=== PATIENT | male | born 1945 | race Caucasian/White ===

== ENCOUNTER 2017-05-21 09:12 | Day surgery (SDC) ==
[2017-05-21 10:12] VITALS: TEMP 98.6
[2017-05-21] MEDS ORDERED: LIDOCAINE 1% 20 ML MDV ID STA (10:12)
[2017-05-21] MEDS ORDERED: VERSED ONE (11:00)
[2017-05-21] MEDS ORDERED: DIPRIVAN 20 ML VIAL IVP ONE (11:00)
--- NOTE | 2017-05-22 11:04 | OP ---
PROCEDURE: COLONOSCOPY TO THE CECUM. ENDOSCOPIST: Benja CLEVELAND M.D. INDICATION: HISTORY OF POLYPS. LAST EXAM 2011. INSTRUMENT: PCFH-190. MEDICATION: PER ANESTHESIA. PROCEDURE: The patient was positioned for colonoscopy. The digital rectal exam was negative. The colonoscope was inserted through the anus and scope is withdrawn through an adequately prepped colon. [place] Bowel Prep Score 2+2+3 = 7. A small polyp in the ascending colon removed using cold snare polypectomy. No other abnormalities were noted. The retroflex exam was otherwise negative. Scattered diverticula in the left colon. He tolerated the procedure without immediate complication. Withdrawal time 10 minutes and 15 seconds. PLAN: 1. Repeat colonoscopy in 5 years. CC: DR. CONCETTA MOSES
[2017-05-22 14:36] VITALS: BP 110/67
== END 2017-05-21 12:10 | disposition home or self-care (01) ==
LOC: SURG 09:12
PROVIDERS: ATTEND Internal Medicine Gastroenterology
DX: Z09 Encounter for follow-up examination after completed treatment for conditions other than malignant neoplasm (principal); Z86.010 Personal history of colon polyps; D12.2 Benign neoplasm of ascending colon; K57.30 Diverticulosis of large intestine without perforation or abscess without bleeding